=== PATIENT | female | born 1980 | race Caucasian/White ===

== ENCOUNTER 2019-06-09 21:06 | Emergency (ER) | payer MEDICAID ==
[~2019-06-09] VITALS: Ht 170.2 cm; Wt 104.3 kg
[2019-06-09 21:10] VITALS: BP_SYST 147
--- NOTE | 2019-06-09 21:10 | NUR ---
Patient triaged and placed in waiting room. VSS and patient appears in no acute distress at this time. Accompanied by fam member, awaiting available bed, and MD notified of need for MSE.
--- NOTE | 2019-06-09 22:20 | NUR ---
Called pt name in the [facility].No answer.
--- NOTE | 2019-06-09 22:25 | NUR ---
Called pt in the [facility] .No answer.
--- NOTE | 2019-06-09 23:20 | NUR ---
Per admitting pt came back and yelling outside wants the nurses name,doctor and HS.
--- NOTE | 2019-06-09 23:30 | NUR ---
Pt upset w/ the waiting time in ER,pt sts she will go to other ER.Pt left ER [facility] ambulatory w/ steady gait accompanied by her fam member.
== END 2019-06-09 23:30 | disposition left against medical advice (07) ==
LOC: SED 21:06
DX: O26.891 Other specified pregnancy related conditions, first trimester (principal); R04.2 Hemoptysis; Z3A.01 Less than 8 weeks gestation of pregnancy; Z53.21 Procedure and treatment not carried out due to patient leaving prior to being seen by health care provider